=== PATIENT | female | born 2005 | race Caucasian/White ===

== ENCOUNTER 2024-04-18 11:58 | Day surgery (SDC) | payer BC, SELFPAY ==
--- NOTE | 2024-04-18 09:12 | HP.PCM_ITS ---
History and Physical Intake Vital Signs 01/10/2416:09 04/10/2413:42 Height 5 ft 1 in 5 ft 1 in Intake Visit Reasons: partial hymenectomy Systems Designer Required: No Is patient in pain?: No Allergies No Known Allergies Allergy (Verified 04/10/24 13:43) Medications ?Medication ?Instructions ?Recorded ?Confirmed ?Type ascorbate calcium (vitamin C) 500 500 mg PO DAILY 12/09/23 04/10/24 History mg tablet calcium carbonate 500 mg PO DAILY 12/09/23 04/10/24 History multivitamin 1 tab PO DAILY 12/09/23 04/10/24 History Post menopausal: No Patient : No : No PFSH Medical History Deviated septum Surgical History History of tonsillectomy Family History Father Myocardial infarction, Onset Age: 59 Social History adopted: No household members: other details: college dorm current occupational status: student pets and animals: Yes pets and animals: cat(s) leisure activities: music Smoking Status: Never smoker alcohol intake: never substance use type: does not use caffeine: No erika/amish: None seatbelt use: always do you feel safe at home: Yes 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 she denies any change in history, planing surgery. Female Reproductive History Menopausal Symptoms: No night sweats History 0 Elective abortions Hx Para Spontaneous abortions Hx # Term Pregnancies Ectopic pregnancies Hx # Pregnancies Multiple births # of living children ROS Const Constitutional: Denies fatigue, night sweats, weight gain or weight loss ENT ENT: Reports system reviewed and no additional complaints, except as documented Cardio Card: Denies chest pain Resp Resp: Denies cough or dyspnea GI GI: Reports as per HPI; Denies abdominal pain, constipation, nausea or vomiting : Denies nipple discharge, urinary frequency, urinary incontinence, urinary hesitancy, urinary urgency, vaginal discharge, vaginal dryness, vaginal odor or vaginal pruritus Musc Musc: Denies arthralgias, back pain or muscle weakness Skin Skin/Breast: Denies alopecia, change in hair, dry skin, breast mass, breast pain, breast skin changes or nipple discharge Neuro Neuro: Reports system reviewed and no additional complaints, except as documented Psych Psych: Reports system reviewed and no additional complaints, except as documented Endo Endo: Denies cold intolerance, excessive sweating, heat intolerance or polydipsia Jose/Lymph Hematologic/Lymphatic: Denies easy bleeding, Denies easy bruising and Denies lymphadenopathy Exam Const General: cooperative, healthy appearing, comfortable, no acute distress and well developed Orientation: alert [facility] Head: normal to inspection and normocephalic Ears: hearing grossly normal bilaterally and external ears normal Nose: external nose normal and nares normal Face and sinus: normal facial exam Neck Neck: normal visual inspection and no lymphadenopathy Thyroid: thyroid normal Chest Chest palpation & inspection: normal inspection of the chest Resp Effort & Inspection: normal respiratory effort Auscultation: clear to auscultation bilaterally Cardio Rate: regular rate Rhythm: regular rhythm Heart Sounds: S1 normal and S2 normal GI Inspection: normal to inspection and non-distended Palpation: soft and no hepatosplenomegaly General: bladder normal to palpation External Female Exam: normal external appearance and normal appearance of the urethra Urethra: normal appearance of the urethra, normal palpation and no discharge Speculum Exam - Vagina: normal appearance of the vagina and normal vaginal discharge Speculum Exam - Cervix: normal appearance of the cervix and nontender Bimanual Exam- Vagina & Uterus: normal bimanual exam, uterine size normal, bladder normal to palpation, uterine shape normal, No tender, uterine mobility normal, consistency normal, normal palpation and non-tender Bimanual Exam- Adnexa, other: normal adnexae, adnexae mobile, no masses and normal Pelvic Support: normal Musc Other: gross motor intact no deficits, full bilateral strength Skin General: no rashes or lesions noted Neuro General: patient alert, patient awake, moves all extremities and no focal motor deficits Motor: muscle tone normal throughout Extrem General: normal to inspection and no pedal edema Psych Appearance: grossly normal Mental Status: mental status grossly normal Affect: normal affect Speech and Movement: speech and movement normal Coding Level of Care Code No Charge Diagnoses Hymen abnormality 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 I have discussed with the patient the risks, benefits, and alternatives of the procedure which include but are not limited to risks of anesthesia, bleeding, infection, possible damage to bowel, bladder, or surrounding vasculature which could lead to additional surgery to evaluate any complications. Patient agrees to procedure and wishes to proceed. ACOG/uptodate references given for additional information regarding procedure. UPDATE- I have seen the patient and performed any clinically relevant updates to the history and physical exam. Chaparrita Urias MD
[2024-04-18 12:22] VITALS: BP 122/73; PULSE 91; RESP 18; TEMP 36.9; O2SAT 98; BMI 19.1
[2024-04-18] MEDS: Lactated Ringers 1,000 ML 15 ML IV (12:39)
[2024-04-18 12:44] LABS: Internal QC Validated? YES +Cl - CLEAR BKGD; Pregnancy, Urine Negative Negative; Record Kit Lot#,Urine Preg HCG0000772476
[2024-04-18 12:46] LABS: Hemoglobin 13.8 g/dL (12.0-15.0); Mean Corp Hgb Conc 32.9 g/dL (32-36); Mean Corpuscular Hgb 30.9 pg (27.0-32.0); Mean Platelet Vol. 9.5 fl (6.2-12.0); Platelet Count 273 K/mm3 (150-450); RBC Distribution Width CV 12.2 % (11.6-14.6); RBC Distribution Width SD 42.7 fl (35.1-43.9); Red Blood Count 4.47 M/mm3 (4.2-5.4); White Blood Count 7.1 K/mm3 (4.4-11.0)
--- NOTE | 2024-04-18 13:07 | PCM.PRE.AN2 ---
ASA Classification* ASA Classification ASA Classification: 2 Assessment & Plan Anesthesia* Anesthesia Assessment Anesthesia Assessment: Discussed sedation and/or anesthesia options, risks, benefits, and alternatives with patient/parents/legal guardian/POA. Questions invited. The patient/parents/legal guardian/POA seems to understand and agrees to proceed with anesthesia plan. Reviewed the physical assessment, medical history, allergy history and patient home medications list prior to surgery/procedure/anesthetic and documented any changes. Performed airway and anesthesia risk assessments. Anesthesia Type Anesthesia Type: MAC History Source History Obtained from:: Patient and Chart Anesthesia Focused Assessment* Temperature: 98.4 F Pulse Rate: 91 Blood Pressure: 122/73 Respiratory Rate: 18 Pulse Ox: 98 Oxygen Delivery Method: Room Air Airway Assessment Mouth opens: 2 cm Mallampati Score: IV Teeth Condition: Caps/Crowns (Patient has 3 crowns. Crowns are all tight.) Neck Range of motion (ROM): Full ROM Focused Labs Anesthesia Preop lab: CBC WBC 7.1 K/mm3 (4.4-11.0) 04/18/24 12:30 RBC 4.47 M/mm3 (4.2-5.4) 04/18/24 12:30 Hgb 13.8 g/dL (12.0-15.0) 04/18/24 12:30 Hct 42.0 % (37-47) 04/18/24 12:30 Plt Count 273 K/mm3 (150-450) 04/18/24 12:30 CHEMISTRY COAG Urine Test Negative Negative 04/18/24 12:36 Pre-Assessment Diagnosis/Proposed Procedure Planned Operative Procedure(s): Hymenectomy (partial) Anesthesia History Anesthesia History - granite fabricator: Anesthesia History - granite fabricator Hx Hospitalization No 04/11/24 09:51 Any Problems With Anesthesia No 04/11/24 09:51 Cholinesterase deficiency No 04/11/24 09:51 You/Your Family Experience No 04/11/24 09:51 fever (hyperthermia) with Relationship Recent Exposure to Contagious No 04/18/24 12:22 Disease Does patient have nerve No 04/11/24 09:51 stimulator Patient instructed to have device shut off --Does patient have Pacemaker No 04/18/24 12:22 or ICD? When Was Last Pacemaker Check QUESTION #4 FULL TEXT: You/Your Family Experience fever (hyperthermia) with Anesthesia Last Oral Intake Last Oral intake: Last Oral Intake NPO since 00:00 04/18/24 12:22 Meds taken in AM with sips of No 04/18/24 12:22 water? Meds patient instructed to take am of surgery PONV PONV - granite fabricator: PONV - granite fabricator Female Yes 04/11/24 09:51 HX of Motion Sickness No 04/11/24 09:51 HX of N/V After Surgery No 04/11/24 09:51 Non-Smoker Yes 04/11/24 09:51 Duration of Surgery greater No 04/11/24 09:51 than 60 minutes Number of Risk Factors 2 04/11/24 09:51 PONV Score Moderate Risk 04/11/24 09:51 Height & Weight Height & Weight: Anesthesia: Height & Weight Height 5 ft 1 in 04/18/24 12:22 Weight: 46 kg 04/18/24 12:22 Body Mass Index (BMI) 19.1 04/18/24 12:22 Respiratory Assessment Respiratory Assessment - granite fabricator: Respiratory Tract Infection Hx - granite fabricator Hx Respiratory Tract Infection No 04/11/24 09:51 STOP Sleep Apnea STOP Sleep Apnea - granite fabricator: STOP Sleep Apnea - granite fabricator Hx Hypertension No 04/11/24 09:51 Hx Sleep Apnea No 04/11/24 09:51 CPAP BIPAP Do you snore loudly (louder No 04/11/24 09:51 than talking or can be heard Do you often feel tired/ No 04/11/24 09:51 fatigued/ sleepy during daytime? Has anyone observed you stop No 04/11/24 09:51 breathing during sleep? STOP Results Negative 04/11/24 09:51 QUESTION #5 FULL TEXT : Do you snore loudly (louder than talking or can be heard through closed doors)? Tobacco Use History Tobacco Use History - granite fabricator: Tobacco Use History - granite fabricator Tobacco Use Smoking Status Never smoker 04/11/24 09:51 Hx Tobacco Use No 04/11/24 09:51 Years Smoking Packs Smoked per Day Smoking Cessation Date was within the last 15 years Hx Smoking Cessation Date Hx Smoking Cessation Counseling Hematologic Medial History Hematologic Hx - granite fabricator: Hematologic Medical Hx - bead picker Hx of Blood Transfusion No 04/11/24 09:51 Hx of Transfusion in last 3 No 04/11/24 09:51 Months Date of Last Transfusion (if within last 3 months) Ever experience any problems No 04/11/24 09:51 with transfusion(s)? Specify any problems Hx of Preganancy in last 3 N/A 04/11/24 09:51 Months Nurse Filling Out Transfusion NBUCHER 04/11/24 09:51 & Questions: Date: 04/11/24 04/11/24 09:51 Time: 09:53 04/11/24 09:51 Patient unable to answer at this time (ie. confused, unrespo /Reproduction History /Reproductive History - granite fabricator: /Reproductive Hx- granite fabricator Hx Now No 04/11/24 09:51 Gestational Age (in weeks): EDC: Hx Hx Para Hx Section SAB No 04/11/24 09:51 Active Medications Active Medications: Current Medications Generic Name Dose Route Start Last Admin Trade Name Freq PRN Reason Stop Dose Admin Lactated Ringer's 1,000 mls @ 15 mls/hr 04/18/24 12:15 04/18/24 12:39 IV 15 mls/hr .Q48H ANGEL Administration PFSH Medical History Non-smoker Deviated septum Home Medications ?Medication ?Instructions ?Recorded ?Last Taken ?Type ascorbate calcium (vitamin C) 500 500 mg PO DAILY 12/09/23 Unknown History mg tablet calcium carbonate 500 mg PO DAILY 12/09/23 Unknown History multivitamin 1 tab PO DAILY 12/09/23 Unknown History fluticasone propionate 50 1 spray intranasal DAILY PRN 04/11/24 Unknown History mcg/actuation nasal allergy symptoms spray,suspension (24 Hour Allergy Relief) loratadine 10 mg tablet 10 mg PO DAILY 04/11/24 Unknown History (Allerclear) Allergy/AdvReac Type Severity Reaction Status Date / Time No Known Allergies Allergy Verified 04/18/24 12:21 Family History Father Myocardial infarction, Onset Age: 59 Surgical History History of nasal septoplasty History of tonsillectomy Social History adopted: No household members: other details: college dorm current occupational status: student pets and animals: Yes pets and animals: cat(s) leisure activities: music Smoking Status: Never smoker alcohol intake: never substance use type: does not use caffeine: No erika/methodist: None seatbelt use: always do you feel safe at home: Yes 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
[2024-04-18 13:11] VITALS: BP 122/73; PULSE 91; RESP 18; TEMP 36.9; O2SAT 98
[2024-04-18] MEDS: Lubricating Jelly 60 GM Tube 30 GM (13:37)
[2024-04-18] MEDS: Bupivacaine 0.25% 30 ML Vial (13:39)
[2024-04-18 13:55] VITALS: BP 122/73; BP 93/55; PULSE 70; RESP 16; TEMP 36.2; O2SAT 99
--- NOTE | 2024-04-18 13:57 | PCM.OPRPT ---
Problems Associated Problem List Diagnoses (1) Hymen abnormality: Report of Operation Date of Procedure: 04/18/24 Pre-Operative Diagnosis: abrnomal hymen Post-Operative Diagnosis: same Surgery/Procedure Performed:: partial hymenectomy Description of Surgical Findings:: imperforate band of hymen Surgeon: Chaparrita Urias Specimen's removed: hymenal band Drains: none Estimated Blood Loss (mL): 20 Fluids Replaced: crystalloid Description of Procedure: Patient was taken to the operating room and placed in the dorsolithotomy position prepped and draped in normal sterile fashion after MAC anesthesia was induced. Local anesthesia was injected on either side of the hymenal band. Using a scalpel the band of hymenal ring that was imperforate was cut and removed, areas of bleeding cauterized with the Bovie. 2 interrupted sutures of 3-0 Vicryl Rapide used to obtain hemostasis. Open hymenal ring was noted and good hemostasis was noted. No areas of suspicion for scarring were noted patient tolerated the procedure well was awoken and taken recovery in stable condition. Multi Select Codes Urinary/Genital Urinary/Genital CPT Codes: 04615 PARTIAL HYMENECTOMY OR REVISION
--- NOTE | 2024-04-18 13:57 | PCM.POST.ANE ---
Anesthesia: Postop Eval I Current Vital Signs Temperature: 97.9 F Pulse Rate: 80 Blood Pressure: 93/55 Respiratory Rate: 16 Pulse Ox: 100 Oxygen Delivery Method: Room Air Assessment Airway patent: Yes Spontaneous unlabored respirations: Yes Mental status: Awake and Calm nausea: No Vomiting: No Anesthesia Complication: No Fluid Hydration Crystalloid volume administer (ml): 700 Total IV fluid infused: 700 Progress Note Anesthesia document: Postop Eval 1 completed: Yes
[2024-04-18 13:58] VITALS: BP 93/55; PULSE 80; RESP 16; TEMP 36.6; O2SAT 100
--- NOTE | 2024-04-18 13:59 | PCM.DC ---
Discharge Instructions Diet Discharge Diet: No restrictions Activity Discharge Activity: Return to Normal Activity, May Shower and May Take a Tub Bath (after 2-3 week) May resume sexual activity in: 4-6 weeks Weight Bearing Status: Weight bearing as tolerated Lifting Restrictions: none Dressing / Incision Call your doctor if you observe: Fever of 101 or Higher, Using more than 1 pad per hour, Shortness of breath and Uncontrolled pain Follow Up Care Please Follow Up With: Chaparrita Urias MD When: Call [phone] to schedule appointment. Test Results: Test results from this visit will be discussed in further detail at your follow-up appointment, if applicable. Discharge Plan Admission Attending Provider: Chaparrita Urias Primary Care Provider: RAUDEL WINSTON Instructions Print Language: Guatemalan Discharge Orders/Prescriptions Prescriptions: No Action multivitamin Tablet 1 tab PO DAILY ascorbate calcium (vitamin C) 500 mg tablet 500 mg PO DAILY calcium carbonate 500 mg calcium (1,250 mg) tablet 500 mg PO DAILY fluticasone propionate [24 Hour Allergy Relief] 50 mcg/actuation spray,suspension 1 spray intranasal DAILY PRN (Reason: allergy symptoms) Rx Instructions: administer into each nostril loratadine [Allerclear] 10 mg tablet 10 mg PO DAILY Referrals / Follow Up: Care Physician,No Primary [Non-Staff] - Disposition Disposition (needs filled in before D/C Order can be placed): Home, Self Care
[2024-04-18 14:00] VITALS: BP 122/73; BP 95/58; PULSE 70; RESP 16; O2SAT 100
[2024-04-18 14:05] VITALS: BP 122/73; BP 93/61; PULSE 74; RESP 16; TEMP 36.3; O2SAT 100
[2024-04-18] MEDS: Acetaminophen 500 MG Tablet 1000 MG PO (15:04)
--- NOTE | 2024-04-18 18:08 | POSTOPAN2_ITS ---
Anesthesia Postop Eval I Sum Postop Eval Completion status Anesthesia document: Postop Eval 1 completed: Yes Anesthesia Postop Eval I Summary Anesthesia Postop Eval I Summary: Anesthesia Postop Eval I: Assessment Summary Airway patent Yes 04/18/24 13:58 [email or web address] [email or web address] Spontaneous unlabored Yes 04/18/24 13:58 TACK [email or web address] respirations Mental status Awake,Calm 04/18/24 13:58 TACK [email or web address].[email or web address] nausea No 04/18/24 13:58 TACK [email or web address].[email or web address] Vomiting No 04/18/24 13:58 TACK [email or web address] Anesthesia Postop Eval I: Fluid Summary Crystalloid volume administer 700 04/18/24 13:58 TACK [email or web address] (ml) Colloids volume administered ( ml) Blood Product volume administered (ml) Total IV fluid infused 700 04/18/24 13:58 [email or web address] [email or web address] Anesthesia Postop Eval I: Summary Notes Anesthesia Complication No 04/18/24 13:58 [email or web address] [email or web address] Anesthesia Complication Comment: Post-operative progress note Anesthesia: Postop Eval II Evaluation Mental status: Awake Pain Level: 0 nausea: No Vomiting: No Complications Anesthesia Complication: No
--- NOTE | 2024-04-18 18:08 | PCM.POSTANE2 ---
Anesthesia Postop Eval I Sum Postop Eval Completion status Anesthesia document: Postop Eval 1 completed: Yes Anesthesia Postop Eval I Summary Anesthesia Postop Eval I Summary: Anesthesia Postop Eval I: Assessment Summary Airway patent Yes 04/18/24 13:58 FLOWER [email or web address].[email or web address] Spontaneous unlabored Yes 04/18/24 13:58 FLOWER [email or web address].[email or web address] respirations Mental status Awake,Calm 04/18/24 13:58 FLOWER [email or web address].[email or web address] nausea No 04/18/24 13:58 FLOWER [email or web address].[email or web address] Vomiting No 04/18/24 13:58 FLOWER [email or web address].[email or web address] Anesthesia Postop Eval I: Fluid Summary Crystalloid volume administer 700 04/18/24 13:58 FLOWER [email or web address].[email or web address] (ml) Colloids volume administered ( ml) Blood Product volume administered (ml) Total IV fluid infused 700 04/18/24 13:58 FLOWER [email or web address].[email or web address] Anesthesia Postop Eval I: Summary Notes Anesthesia Complication No 04/18/24 13:58 FLOWER [email or web address].[email or web address] Anesthesia Complication Comment: Post-operative progress note Anesthesia: Postop Eval II Evaluation Mental status: Awake Pain Level: 0 nausea: No Vomiting: No Complications Anesthesia Complication: No
== END 2024-04-18 15:08 | disposition home or self-care (01) ==
LOC: SDC 12:00 → AC 12:01
PROVIDERS: Referring Provider Obstetrics & Gynecology; Visit Provider Obstetrics & Gynecology
PROC: (CPT 56700; principal; 2024-04-18 13:20)
DX: Q52.3 Imperforate hymen (principal)
CPT/HCPCS: 56700; 81025; 85027; 86850; 86900; 86901; J7120; J2405

== ENCOUNTER → 2024-12-15 | Outpatient (CLI) | payer BC, SELFPAY | END | disposition home or self-care (01) | LOC: LABSPEC 15:13 | PROVIDERS: Referring Provider Advanced Practice Midwife; Visit Provider Advanced Practice Midwife | DX: Z12.4 Encounter for screening for malignant neoplasm of cervix (principal) | CPT/HCPCS: 88175; G0145 ==